=== PATIENT | female | born 1945 | race Native Hawaiian/Other Pacific Islander ===

== ENCOUNTER 2017-06-17 09:09 | Outpatient (CLI) | payer OTHER, MEDICARE ==
[~2017-06-17 09:09] MED LIST: ASA LOW STR81 MG PO; CEFU250T2 PO; FEXOFENADINE H180 MG PO; FLUT0.05 NAS; LEVOTHROID88 MCG PO
== END 2017-06-17 10:10 | disposition home or self-care (01) ==
LOC: RAD 09:09
DX: M79.672 Pain in left foot (principal)

== ENCOUNTER 2017-06-19 14:39 | Outpatient (CLI) | payer OTHER, MEDICARE | END 2017-06-19 19:37 | disposition home or self-care (01) | LOC: LABW 14:39 | PROVIDERS: Nurse Practitioner | DX: E03.8 Other specified hypothyroidism (principal); E78.00 Pure hypercholesterolemia, unspecified | CPT/HCPCS: 36415; 80061; 84443 ==

== ENCOUNTER 2017-11-27 14:03 | Outpatient (CLI) | payer OTHER, MEDICARE | END 2017-11-27 19:41 | disposition home or self-care (01) | LOC: US 14:03 | DX: E04.1 Nontoxic single thyroid nodule (principal) ==

== ENCOUNTER → 2018-04-30 12:24 | Outpatient (CLI) | payer OTHER, MEDICARE | END | disposition home or self-care (01) | LOC: AMB 12:24 | DX: S10.81XA Abrasion of other specified part of neck, initial encounter (principal); V49.9XXA Car occupant (driver) (passenger) injured in unspecified traffic accident, initial encounter; Y93.89 Activity, other specified; Y92.89 Other specified places as the place of occurrence of the external cause; Y99.8 Other external cause status ==

== ENCOUNTER 2018-04-30 13:04 | Emergency (ER) | payer OTHER, MEDICARE ==
[~2018-04-30] VITALS: Ht 152.4 cm; Wt 72.6 kg
[2018-04-30 13:10] VITALS: TEMP 98.1
[2018-04-30 14:30] VITALS: BP 110/80
== END 2018-04-30 14:30 | disposition home or self-care (01) ==
LOC: ED 13:04
DX: S16.1XXA Strain of muscle, fascia and tendon at neck level, initial encounter (principal); V89.2XXA Person injured in unspecified motor-vehicle accident, traffic, initial encounter; Y92.89 Other specified places as the place of occurrence of the external cause

== ENCOUNTER 2018-12-04 15:57 | Outpatient (CLI) | payer OTHER, MEDICARE | END 2018-12-04 21:43 | disposition home or self-care (01) | LOC: LABW 15:57 | DX: E03.9 Hypothyroidism, unspecified (principal) | CPT/HCPCS: 36415; 84443 ==

== ENCOUNTER 2019-02-03 09:08 | Outpatient (CLI) | payer OTHER, MEDICARE | END 2019-02-03 22:57 | disposition home or self-care (01) | LOC: MAMMO 09:08 | DX: Z12.31 Encounter for screening mammogram for malignant neoplasm of breast (principal) ==

== ENCOUNTER 2019-12-16 18:00 | Outpatient (CLI) | payer OTHER ==
[2019-12-16 19:15] LABS: PLATELET COUNT 220 K/uL (152-353)
[2019-12-16 19:44] LABS: POTASSIUM 4.6 mmol/L (3.6-5.2)
== END 2019-12-16 20:00 | disposition home or self-care (01) ==
LOC: LAB 18:00 → EDSTATUS 12-17 08:19
PROVIDERS: Internal Medicine
DX: E03.8 Other specified hypothyroidism (principal); E55.9 Vitamin D deficiency, unspecified
CPT/HCPCS: 80053; 82306; 84443; 85027

== ENCOUNTER 2019-12-30 11:01 | Outpatient (CLI) | payer OTHER | END 2019-12-30 20:28 | disposition home or self-care (01) | LOC: RAD 11:01 | DX: E03.8 Other specified hypothyroidism (principal); Z78.0 Asymptomatic menopausal state ==

== ENCOUNTER 2021-02-20 08:27 | Outpatient (CLI) | payer OTHER | END 2021-02-20 19:17 | disposition home or self-care (01) | LOC: US 08:27 | PROVIDERS: ATTEND Internal Medicine | DX: R79.89 Other specified abnormal findings of blood chemistry (principal) ==

== ENCOUNTER 2023-01-31 09:42 | Observation (INO) | payer OTHER ==
[~2023-01-31] VITALS: Ht 152.4 cm; Wt 70.8 kg
[2023-01-31 09:42] VITALS: BP 135/81; TEMP 98.1
[2023-01-31 09:59] LABS: PLATELET COUNT 438 K/uL (152-353)
[2023-01-31 10:14] LABS: PARTIAL THROMBOPLASTIN TIME 29.2 SECONDS (24.5-33.6); POTASSIUM 4.1 mmol/L (3.6-5.2)
[2023-01-31 11:00] VITALS: BP 128/68
[2023-01-31 12:20] VITALS: BP 140/60
[2023-01-31 15:20] VITALS: BP 198/89; TEMP 97.5; Ht 152.4 cm; Wt 70.8 kg
[2023-01-31 16:08] VITALS: BP 178/75; TEMP 98.4
[2023-01-31] MEDS ORDERED: LEVO0.0723 PO (16:51)
[2023-01-31] MEDS ORDERED: TYLENOL PO (16:52)
[2023-01-31] MEDS ORDERED: ASPIRIN81 M2 PO (16:53)
[2023-01-31] MEDS ORDERED: ALBUTEROL0.083 % INH (16:53)
[2023-01-31] MEDS ORDERED: MONT10TA PO (16:54)
[2023-01-31 20:09] VITALS: BP 173/63; TEMP 98.1
[2023-02-01] VITALS: BP 163/58; TEMP 98
[2023-02-01 04:00] VITALS: BP 133/45; TEMP 98.8
[2023-02-01 04:34] LABS: PLATELET COUNT 284 K/uL (152-353)
[2023-02-01 04:53] LABS: POTASSIUM 4.1 mmol/L (3.6-5.2)
[2023-02-01 08:00] VITALS: BP 171/65; TEMP 98.7
[2023-02-01 09:02] VITALS: BP 165/61
[2023-02-01 09:03] VITALS: BP 176/62
[2023-02-01 09:04] VITALS: BP 183/62
[2023-02-01] MEDS ORDERED: Rosuvastatin PO (09:48)
[2023-02-01] MEDS ORDERED: LISI5TAB10 PO (09:49)
[2023-02-01] MEDS ORDERED: MECLIZINE25 MG PO (09:49)
[2023-02-01] MEDS ORDERED: PRED20TA27 PO (10:05)
== END 2023-02-01 11:55 | disposition home or self-care (01) ==
LOC: ED 09:42 → MED/SURG 11:14 → ED 11:14 → MED/SURG 02-01 11:55
PROVIDERS: ADMIT Emergency Medicine; ATTEND Internal Medicine
PROC: 0HQ0XZZ Repair Scalp Skin, External Approach (ICD-10-PCS; principal; 2023-01-31)
DX: I95.1 Orthostatic hypotension (principal); R20.2 Paresthesia of skin; E03.8 Other specified hypothyroidism; I10 Essential (primary) hypertension; Z86.16 Personal history of COVID-19; D64.9 Anemia, unspecified; R11.2 Nausea with vomiting, unspecified; S01.01XA Laceration without foreign body of scalp, initial encounter; W18.39XA Other fall on same level, initial encounter; Y92.89 Other specified places as the place of occurrence of the external cause; I65.29 Occlusion and stenosis of unspecified carotid artery
CPT/HCPCS: 36415; 80053; 81002; 82272; 82607; 82728; 82746; 83540; 83550; 84466; 84484; 85027; 85610; 85730; 90471; 90715; 93005; 96360; 96361; 96374; 96375; 96376; 99220; 99284; G0378; J2270; J2405

== ENCOUNTER 2023-03-04 11:50 | Outpatient (CLI) | payer OTHER ==
[~2023-03-04 11:50] MED LIST changes: +ALBUTEROL0.083 % INH; +ASPIRIN81 M2 PO; +LEVO0.0723 PO; +LISI5TAB10 PO; +MECLIZINE25 MG PO; +MONT10TA PO; +PRED20TA27 PO; +Rosuvastatin PO; +TYLENOL PO
[2023-03-04 12:02] LABS: PLATELET COUNT 257 K/uL (152-353)
== END 2023-03-04 21:20 | disposition home or self-care (01) ==
LOC: LAB 11:50
PROVIDERS: ATTEND Nurse Practitioner Family
DX: K62.5 Hemorrhage of anus and rectum (principal); D64.89 Other specified anemias
CPT/HCPCS: 82607; 82728; 83540; 83550; 85027